=== PATIENT | male | born 1950 | race Caucasian/White ===

== ENCOUNTER → 2019-07-09 08:52 | Outpatient (BNVA) | payer MEDICARE, BC, SELFPAY | PROVIDERS: Family Provider Family Medicine; Visit Provider Family Medicine | DX: E03.9 Hypothyroidism, unspecified (principal); E78.2 Mixed hyperlipidemia; J45.40 Moderate persistent asthma, uncomplicated; R35.1 Nocturia; Z12.5 Encounter for screening for malignant neoplasm of prostate | CPT/HCPCS: 80053; 80061; 84153; 84443; 85025 ==

== ENCOUNTER → 2020-01-09 09:57 | Outpatient (BNVA) | payer MEDICARE, BC, SELFPAY | PROVIDERS: Family Provider Family Medicine; Visit Provider Family Medicine | DX: E03.9 Hypothyroidism, unspecified (principal); E78.2 Mixed hyperlipidemia | CPT/HCPCS: 80053; 84443 ==

== ENCOUNTER → 2020-02-07 08:44 | Outpatient (BNVA) | payer MEDICARE, BC, SELFPAY | PROVIDERS: Family Provider Family Medicine; PCP Family Medicine; Visit Provider Family Medicine | DX: E78.2 Mixed hyperlipidemia (principal); J45.40 Moderate persistent asthma, uncomplicated | CPT/HCPCS: 80053 ==

== ENCOUNTER → 2020-04-09 08:59 | Outpatient (BNVA) | payer MEDICARE, BC, SELFPAY | PROVIDERS: Family Provider Family Medicine; PCP Family Medicine; Visit Provider Family Medicine | DX: J45.40 Moderate persistent asthma, uncomplicated (principal); E78.2 Mixed hyperlipidemia; I10 Essential (primary) hypertension | CPT/HCPCS: 80053; 80061 ==

== ENCOUNTER → 2020-11-06 09:24 | Outpatient (BNVA) | payer MEDICARE, BC, SELFPAY | PROVIDERS: Family Provider Family Medicine; PCP Family Medicine; Visit Provider Family Medicine | DX: I10 Essential (primary) hypertension (principal); E78.2 Mixed hyperlipidemia; E03.9 Hypothyroidism, unspecified; J01.10 Acute frontal sinusitis, unspecified | CPT/HCPCS: 80053; 80061; 82043; 84443; 85025 ==

== ENCOUNTER → 2021-05-07 08:44 | Outpatient (BNVA) | payer MEDICARE, BC, SELFPAY | PROVIDERS: Family Provider Family Medicine; PCP Family Medicine; Visit Provider Family Medicine | DX: E03.9 Hypothyroidism, unspecified (principal); I10 Essential (primary) hypertension | CPT/HCPCS: 80053; 84443 ==

== ENCOUNTER 2021-06-14 14:30 | Outpatient (CLI) | payer MEDICARE, BC, SELFPAY ==
--- NOTE | 2021-06-14 15:00 | CT_ITS ---
WS: [id number] CT SINUSES TECHNIQUE: Noncontrast CT of the paranasal sinuses with coronal and sagittal reformatted images. CLINICAL INFORMATION: sinus infections COMPARISON: None. DLP: 335.[address] scans at [facility] use at least one of these dose optimization techniques: automated e xposure control; mA and/or kV adjustment per patient size (includes targeted exams where dose is matc hed to clinical indication); or iterative reconstruction. FINDINGS: Mild LEFT to RIGHT nasal septal deviation measuring 4 mm. Mild narrowing of the ostiomeatal units dennis aterally. Less than 5 mm mucosal thickening in the maxillary sinuses bilaterally. Hypoplastic frontal sinuses are well aerated. Mild mucosal thickening ethmoid air cells. Frontal ethmoidal recesses appe ar patent. Sphenoid sinuses are patent. Sphenoid ostia are patent. Mastoid air cells are well aerated . Normal posterior nasopharynx. Normal parapharyngeal fat. Degenerative changes at the C1-C2 articula tion. CT/CT sinus wo con* [id number] IMPRESSION: 1. Mild LEFT to RIGHT nasal septal deviation measuring 4 mm. 2. Mild narrowing of the ostiomeatal units bilaterally which remain patent. 3. Hypoplastic frontal sinuses. Mild mucosal thickening in the ethmoid air brandon ls. 4. Less than 5 mm mucosal thickening in the maxillary sinuses bilaterally. 5. Sphenoid sinuses and sphenoid ostia are patent. 6. Mastoid air cells are well aerated. Normal posterior nasopharynx.
== END 2021-06-14 14:31 | disposition home or self-care (01) ==
LOC: RAD 14:33
PROVIDERS: PCP Family Medicine; Visit Provider Otolaryngology
DX: J32.9 Chronic sinusitis, unspecified (principal); J34.2 Deviated nasal septum
CPT/HCPCS: 70486

== ENCOUNTER → 2021-11-05 08:55 | Outpatient (BNVA) | payer MEDICARE, BC, SELFPAY | PROVIDERS: Family Provider Family Medicine; PCP Family Medicine; Visit Provider Family Medicine | DX: I10 Essential (primary) hypertension (principal); J45.40 Moderate persistent asthma, uncomplicated; J32.9 Chronic sinusitis, unspecified; E03.9 Hypothyroidism, unspecified; E78.2 Mixed hyperlipidemia; Z12.5 Encounter for screening for malignant neoplasm of prostate | CPT/HCPCS: 80053; 80061; 82043; 85025; G0103 ==

== ENCOUNTER → 2021-11-07 08:55 | Outpatient (BNVA) | payer MEDICARE, BC, SELFPAY | PROVIDERS: Family Provider Family Medicine; PCP Family Medicine; Visit Provider Family Medicine | DX: I10 Essential (primary) hypertension (principal); J45.40 Moderate persistent asthma, uncomplicated; J32.9 Chronic sinusitis, unspecified; E03.9 Hypothyroidism, unspecified; E78.2 Mixed hyperlipidemia; Z12.5 Encounter for screening for malignant neoplasm of prostate | CPT/HCPCS: 84443 ==

== ENCOUNTER → 2022-05-06 08:50 | Outpatient (BNVA) | payer MEDICARE, SELFPAY | PROVIDERS: PCP Family Medicine; Visit Provider Family Medicine | DX: E03.9 Hypothyroidism, unspecified (principal) | CPT/HCPCS: 84443 ==

== ENCOUNTER → 2022-11-04 07:55 | Outpatient (BNVA) | payer MEDICARE, SELFPAY | PROVIDERS: PCP Family Medicine; Visit Provider Family Medicine | DX: I10 Essential (primary) hypertension (principal); E78.2 Mixed hyperlipidemia; E03.9 Hypothyroidism, unspecified; Z12.5 Encounter for screening for malignant neoplasm of prostate; J45.40 Moderate persistent asthma, uncomplicated | CPT/HCPCS: 80053; 80061; 82043; 84443; 85025; G0103 ==

== ENCOUNTER 2022-11-16 09:02 | Outpatient (CLI) | payer MEDICARE, SELFPAY | END 2022-11-16 09:03 | disposition home or self-care (01) | LOC: RT 09:03 | PROVIDERS: PCP Family Medicine; Visit Provider Family Medicine | DX: J45.40 Moderate persistent asthma, uncomplicated (principal) | CPT/HCPCS: 80053; 80061; 82043; 84443; 85025; 94010; 94726; 94729; G0103 ==

== ENCOUNTER → 2023-04-17 15:23 | Outpatient (BNVA) | payer MEDICARE, SELFPAY | PROVIDERS: PCP Family Medicine; Referring Provider Family Medicine; Visit Provider Internal Medicine Pulmonary Disease | DX: R06.02 Shortness of breath (principal) | CPT/HCPCS: 36415; 71046; 82785; 86003; 99204 ==

== ENCOUNTER → 2023-05-25 09:33 | Outpatient (BNVA) | payer MEDICARE, SELFPAY | PROVIDERS: PCP Family Medicine; Visit Provider Family Medicine | DX: E03.9 Hypothyroidism, unspecified (principal); Z13.6 Encounter for screening for cardiovascular disorders; E78.2 Mixed hyperlipidemia | CPT/HCPCS: 80053; 84443 ==

== ENCOUNTER → 2023-06-19 14:22 | Outpatient (BNVA) | payer MEDICARE, SELFPAY | PROVIDERS: PCP Family Medicine; Visit Provider Internal Medicine Pulmonary Disease | DX: J82.83 Eosinophilic asthma (principal); Z87.891 Personal history of nicotine dependence | CPT/HCPCS: 99214 ==

== ENCOUNTER → 2023-08-04 08:37 | Outpatient (BNVA) | payer MEDICARE, SELFPAY | PROVIDERS: PCP Family Medicine; Visit Provider Internal Medicine Pulmonary Disease | DX: J82.83 Eosinophilic asthma (principal); Z87.891 Personal history of nicotine dependence | CPT/HCPCS: 99214 ==

== ENCOUNTER → 2023-12-06 09:26 | Outpatient (BNVA) | payer MEDICARE, SELFPAY | PROVIDERS: PCP Family Medicine; Visit Provider Family Medicine | DX: I25.10 Atherosclerotic heart disease of native coronary artery without angina pectoris (principal) | CPT/HCPCS: 80053; 80061; 84439; 84443; 85025 ==

== ENCOUNTER → 2024-07-04 10:20 | Outpatient (BNVA) | payer MEDICARE, SELFPAY | PROVIDERS: PCP Family Medicine; Visit Provider Family Medicine | DX: I10 Essential (primary) hypertension (principal); E03.9 Hypothyroidism, unspecified; R35.0 Frequency of micturition | CPT/HCPCS: 80053; 81003; 84443; 87086 ==

== ENCOUNTER 2024-07-24 11:31 | Outpatient (RCR) | payer MEDICARE, SELFPAY | END 2024-08-03 23:59 | disposition home or self-care (01) | LOC: SPT 11:31 | PROVIDERS: PCP Family Medicine; Visit Provider Family Medicine | DX: H81.10 Benign paroxysmal vertigo, unspecified ear (principal) | CPT/HCPCS: 97161 ==

== ENCOUNTER 2024-08-05 07:48 | Outpatient (CLI) | payer MEDICARE, SELFPAY ==
--- NOTE | 2024-08-05 07:59 | XR_ITS ---
WS: [id number] XR shoulder LT min 2V* [id number] REASON FOR EXAM: acute left shoulder pain FINDINGS: No fracture or focal bone lesion. Mild to moderate narrowing of the acromioclavicular joint space with mild to moderate osteophytosis. Glenohumeral joint space is intact with mild narrowing. Mild subchondral sclerosis of the glenoid Moderate sclerosis and cystic change in the greater biceps tuberosity. XR/XR shoulder LT min 2V* [id number] IMPRESSION: Moderate osteoarthritis of the acromioclavicular joint. Mild osteoarthritis of the glenohumeral joint. Moderate rotator cuff tendon arthropathy.
== END 2024-08-05 07:49 | disposition home or self-care (01) ==
PROVIDERS: PCP Family Medicine; Visit Provider Family Medicine
DX: M25.512 Pain in left shoulder (principal); G89.29 Other chronic pain
CPT/HCPCS: 73030

== ENCOUNTER 2024-08-22 09:30 | Outpatient (RCR) | payer MEDICARE, SELFPAY | END 2024-09-02 23:59 | disposition home or self-care (01) | LOC: SPT 09:30 | PROVIDERS: PCP Family Medicine; Visit Provider Family Medicine | DX: M25.512 Pain in left shoulder (principal) | CPT/HCPCS: 97110; 97161 ==

== ENCOUNTER 2024-09-03 05:00 | Outpatient (RCR) | payer MEDICARE, SELFPAY | END 2024-10-03 23:59 | disposition home or self-care (01) | LOC: SPT 05:00 | PROVIDERS: Visit Provider Family Medicine | DX: M25.512 Pain in left shoulder (principal) | CPT/HCPCS: 97110 ==

== ENCOUNTER 2024-10-09 07:50 | Outpatient (CLI) | payer MEDICARE, SELFPAY ==
--- NOTE | 2024-10-09 08:00 | MR_ITS ---
WS: [id number] MRI LEFT SHOULDER NONCONTRAST TECHNIQUE: Sagittal T2, coronal T1, T2 and proton density imaging. Axial gradient PDE imaging. CLINICAL INFORMATION: concern for left rotator cuff tear, limited ROM COMPARISON: None. FINDINGS: Moderate arthritis AC joint with narrowing of the subacromial space. Subacromial spurring. Mild downsloping acromion. Subacromial and subdeltoid fluid. High-grade complete tear of the supraspinatus with retraction to the level of the acromion. Chronic thinning of the supraspinatus. In addition, high-grade intrasubstance tear supraspinatus deep to the acromion with fluid signal. No retraction. Chronic thinning of the infraspinatus. Teres minor is intact. Tendinopathy subscapularis with chronic thinning and intrasubstance tears distally. Biceps tendon mostly absent from the bicipital groove proximally compatible with prior tear. Suspected small biceps tendon remnant along the medial bicipital groove. Only partially visualized intra-articular biceps tendon compatible with chronic tear. Small joint effusion. Fluid in the subcoracoid bursa. Advanced degenerative narrowing of the glenohumeral articulation with degenerative fraying of the glenoid labrum. Thickening along the axillary recess can be seen with adhesive capsulitis in the appropriate setting. Visually small shoulder capsule. MR/MR shoulder LT wo con* [id number] IMPRESSION: 1. Advanced arthritis AC joint and glenohumeral articulation. 2. Visibly small shoulder capsule suspicious for adhesive capsulitis in the ap propriate clinical setting. 3. High-grade complete tear of the supraspinatus with retraction to the level of the acromion. Partial intrasubstance tear of the infraspinatus with chronic thinning. 4. Chronic thinning of the subscapularis tendon with tendinopathy and intrasub stance tears distally. 5. Biceps tendon is essentially absent from the bicipital groove with a possib le small biceps tendon remnant subluxed along the medial bicipital groove. 6. Intra-articular biceps tendon is only partially visualized compatible with chronic tear. 7. Chronic degenerative fraying of the glenoid labrum. 8. Subchondral cystic change involving the greater tuberosity.
== END 2024-10-09 07:51 | disposition home or self-care (01) ==
LOC: RAD 07:51
PROVIDERS: PCP Family Medicine; Visit Provider Family Medicine
DX: M75.102 Unspecified rotator cuff tear or rupture of left shoulder, not specified as traumatic (principal); M19.012 Primary osteoarthritis, left shoulder; M85.612 Other cyst of bone, left shoulder
CPT/HCPCS: 73221

== ENCOUNTER → 2024-11-06 08:48 | Outpatient (BNVA) | payer MEDICARE, SELFPAY | PROVIDERS: PCP Family Medicine; Visit Provider Student in an Organized Health Care Education/Training Program | DX: M75.102 Unspecified rotator cuff tear or rupture of left shoulder, not specified as traumatic (principal); M19.012 Primary osteoarthritis, left shoulder | CPT/HCPCS: 20610; 99204; J3301; J9999 ==

== ENCOUNTER → 2024-11-28 09:52 | Outpatient (BNVA) | payer MEDICARE, SELFPAY | PROVIDERS: PCP Family Medicine; Visit Provider Family Medicine | DX: Z12.5 Encounter for screening for malignant neoplasm of prostate (principal); E03.9 Hypothyroidism, unspecified; I10 Essential (primary) hypertension | CPT/HCPCS: 80053; 80061; 84439; 84443; 85025; G0103 ==

== ENCOUNTER → 2024-12-25 13:18 | Outpatient (BNVA) | payer MEDICARE, SELFPAY | PROVIDERS: PCP Family Medicine; Visit Provider Surgery | DX: Z12.11 Encounter for screening for malignant neoplasm of colon (principal) | CPT/HCPCS: 99204 ==

== ENCOUNTER 2025-01-02 09:29 | Day surgery (SDC) | payer MEDICARE, SELFPAY ==
[2025-01-02 09:53] VITALS: BP 160/102; PULSE 82; RESP 18; TEMP 36.6; O2SAT 94; BMI 28.1
--- NOTE | 2025-01-02 10:21 | W.PM.OPSUD ---
Surgery/Procedure H&P Update DATE OF PROCEDURE: January 02, 2025 DATE H&P PERFORMED: 12/25/24 H&P UPDATE INFORMATION: I have reviewed H&P completed within last 30 days, I have examined patient prior to procedure, No changes to prior documentation, H&P is in [facility] EMR on date indicated and Risks and benefits of the procedure reviewed PLANNED PROCEDURE: Operation Date: 01/02/25 11:20 Proposed Procedures p Colonoscopy [id number] G0105 Z12.11(Not Applicable) - Tenzin Ricks MD
--- NOTE | 2025-01-02 11:15 | ANES.PREANE2 ---
Pre-Anesthetic Assessment Height/Weight: Height 1.73 m Weight 83.915 kg Temp Pulse Resp BP Pulse Ox O2 Del Method 97.9 F 82 18 160/102 94 Room Air 01/02/25 09:53 01/02/25 09:53 01/02/25 09:53 01/02/25 09:53 01/02/25 09:53 01/02/25 09:53 Preop Diagnosis: Screening procedure Operation Date: 01/02/25 11:20 Proposed Procedures p Colonoscopy [id number] G0105 Z12.11(Not Applicable) - Tenzin Ricks MD Familial anesthetic complications: none Was Beta Marry taken within 24 hours: N/A Was Clonidine taken within 24 hours: N/A Last intake: Intake Last Liquid Date 01/01/25 Last Liquid Time 23:00 Last Solid Date 12/31/24 Last Solid Time 15:00 Social No alcohol and No tobacco Exam alert, oriented x 3, clear to auscultation bilaterally and regular rate & rhythm Airway Submandibular: within normal limits Cervical ROM: within normal limits Mallampati: Class I Dentition: chipped Comments: Comments: upper and lower teeth chipped Pulmonary Asthma uses singulair CV/HEM Hypertension and Myocardial Infarction [place] in 2006 with two stents placed; denies CP or SOB now None reported Hepatic None reported GI None reported Metabolic Thyroid Disease [facility] None reported Neuropsych None reported Anesthetic Plan ASA status: 3 Anesthesia: MAC Risk of > 500 ml blood loss (7ml/kg in children): No Medications/Allergies Home Medications ?Medication ?Instructions ?Recorded ?Confirmed ?Last Taken ?Type omeprazole 10 mg capsule,delayed 10 mg PO DAILY 05/12/21 01/02/25 12/30/24 History release tiotropium bromide 1.25 2 puff inhalation DAILY 90 days 11/28/24 01/02/25 12/30/24 Rx mcg/actuation mist for inhalation #12 grams (Spiriva Respimat) fluticasone propionate 115 See Rx Instructions .Route 12/10/24 01/02/25 12/30/24 Rx mcg-salmeterol 21 mcg/actuation .COMPLEX #12 grams HFA inhaler (Advair HFA) albuterol sulfate 2.5 mg/3 mL See Rx Instructions .Route 12/25/24 01/02/25 Unknown Rx (0.083 %) solution for nebulization .COMPLEX #180 mL aspirin 81 mg tablet 81 mg PO DAILY 12/25/24 01/02/25 12/29/24 History acyclovir 400 mg tablet 400 mg PO TID PRN Outbreak 12/30/24 01/02/25 12/30/24 History albuterol sulfate 90 mcg/actuation See Rx Instructions .Route 12/30/24 01/02/25 12/27/24 Rx aerosol inhaler .COMPLEX #18 grams apple cider vinegar 500 mg tablet 450 mg PO DAILY 12/30/24 01/02/25 12/30/24 History ascorbic acid (vitamin C) 500 mg 500 mg PO BID 12/30/24 01/02/25 12/30/24 History tablet (Vitamin C) cholecalciferol (vitamin D3) 125 125 mcg PO DAILY 12/30/24 01/02/25 12/30/24 History mcg (5,000 unit) tablet (Vitamin D3) cyanocobalamin (vitamin B-12) 1,000 mcg PO DAILY 12/30/24 01/02/25 12/30/24 History 1,000 mcg tablet (Vitamin B-12) enalapril maleate 5 mg tablet 5 mg PO DAILY 12/30/24 01/02/25 12/30/24 History fexofenadine 180 mg tablet 180 mg PO BEDTIME 12/30/24 01/02/25 12/30/24 History fluticasone propionate 50 2 spray intranasal BID 12/30/24 01/02/25 12/30/24 History mcg/actuation nasal spray,suspension (Flonase Allergy Relief) garlic 1,000 mg capsule 1,000 mg PO DAILY 12/30/24 01/02/25 12/30/24 History herbal drugs 1 cap PO DAILY 12/30/24 01/02/25 12/30/24 History levothyroxine 50 mcg tablet 50 mcg PO DAILY 12/30/24 01/02/25 12/30/24 History montelukast 10 mg tablet 2.5 mg PO QID 12/30/24 01/02/25 12/30/24 History omega-3 fatty acids-vitamin E 1 cap PO DAILY 12/30/24 01/02/25 12/30/24 History 1,000 mg capsule ondansetron 8 mg disintegrating 8 mg PO Q8H PRN Nausea And Vomiting 12/30/24 01/02/25 Unknown History tablet simvastatin 40 mg tablet 40 mg PO BEDTIME 12/30/24 01/02/25 12/30/24 History zinc 50 mg tablet 50 mg PO DAILY 12/30/24 01/02/25 12/30/24 History Allergies Allergy/AdvReac Type Severity Reaction Status Date / Time atorvastatin Allergy muscle Verified 12/30/24 14:43 aches Current Medications Generic Name Dose Route Start Last Admin Trade Name Freq PRN Reason Stop Dose Admin Sodium Chloride 1,000 mls @ 15 mls/hr 01/02/25 09:42 01/02/25 10:04 Sodium Chloride 0.9% IV 01/03/25 09:41 15 mls/hr .Q24H PRN Administration COLONOSCOPY FLUIDS PFSH Anesthesia Medical History (Updated 12/30/24 @ 14:41 by Juliana Rose CMA) Osteoarthritis Allergic rhinitis [place] (myocardial infarction) 2006 Acquired hypothyroidism Essential hypertension Moderate persistent asthma Mixed hyperlipidemia Chronic GERD Takes OTC omeprazole - 20 mg po q day Surgical History (Updated 12/25/24 @ 13:38 by LAUREEN Schmitt) H/O heart artery stent History of shoulder surgery History of angioplasty Family History (Updated 12/25/24 @ 13:39 by LAUREEN Schmitt) Brother Cancer brother- prostate mother brain Other CAD (coronary artery disease) Hypertension Thyroid disease Social History Smoking and tobacco/nicotine status: never used tobacco/nicotine Quit status (tobacco/nicotine): has quit using Year quit tobacco: 1977 Former quit date comment: 2 ppd X 10 years Alcohol intake: never Substance/Drug Use: never
[2025-01-02 12:23] VITALS: BP 130/83; PULSE 75; RESP 20; TEMP 36.1; O2SAT 97
[2025-01-02 12:31] VITALS: BP 126/92; PULSE 77; RESP 18; O2SAT 96
[2025-01-02 12:38] VITALS: BP 146/94; PULSE 70; RESP 18; O2SAT 96
--- NOTE | 2025-01-02 12:55 | ANE.PACU2 ---
Inpatient post-anesthesia follow up: Airway intact: Yes Vital signs: Temperature 97.0 F Pulse Rate 70 Respiratory Rate 18 Blood Pressure 146/94 Pulse Oximetry 96 Oxygen Delivery Me thod Room Air Oxygen Flow Rate Fraction of Inspir ed Oxygen Hydration adequate: Yes Nausea and vomiting: No Pain level: 1 Mental status: Baseline
== END 2025-01-02 12:58 | disposition home or self-care (01) ==
PROVIDERS: PCP Family Medicine; Visit Provider Surgery
PROC: 0DJD8ZZ Inspection of Lower Intestinal Tract, Via Natural or Artificial Opening Endoscopic (ICD-10-PCS; CPT 45378; principal; 2025-01-02 11:20)
DX: Z12.11 Encounter for screening for malignant neoplasm of colon (principal); K57.30 Diverticulosis of large intestine without perforation or abscess without bleeding; D12.0 Benign neoplasm of cecum; D12.3 Benign neoplasm of transverse colon; K63.5 Polyp of colon; Z79.82 Long term (current) use of aspirin; K21.9 Gastro-esophageal reflux disease without esophagitis; I25.2 Old myocardial infarction; E03.9 Hypothyroidism, unspecified; I10 Essential (primary) hypertension; E78.2 Mixed hyperlipidemia; Z80.42 Family history of malignant neoplasm of prostate; Z87.891 Personal history of nicotine dependence; J45.909 Unspecified asthma, uncomplicated; Z95.5 Presence of coronary angioplasty implant and graft
CPT/HCPCS: 45380; 45385; 88305; J2704; J7030

== ENCOUNTER → 2025-01-13 10:25 | Outpatient (BNVA) | payer MEDICARE, SELFPAY | PROVIDERS: PCP Family Medicine; Visit Provider Surgery | DX: Z09 Encounter for follow-up examination after completed treatment for conditions other than malignant neoplasm (principal) | CPT/HCPCS: 99213 ==